=== PATIENT | female | born 1985 | race Caucasian/White ===

== ENCOUNTER 2022-08-28 15:07 | Inpatient (IN) | payer MEDICARE, OTHER ==
[~2022-08-28] VITALS: Ht 160 cm; Wt 66.7 kg
--- NOTE | 2022-08-28 15:07 | NUR ---
RECEIVED PT CAME BY [facility] C/John FROM [facility] BS AWAKE AND ALERT NO SOB
--- NOTE | 2022-08-28 15:15 | NUR ---
BLOOD DROW AT BED SIDE BY LAB TACH
[2022-08-28 15:38] LABS: BASOPHILS % (AUTO) 0.8 % (0.0-2.0); HEMATOCRIT 34 % (33-45); HEMOGLOBIN 10.4 g/dL (11.5-14.8); LYMPHOCYTES # (AUTO) 1.2 K/uL (0.8-4.8); LYMPHOCYTES % (AUTO) 23.9 % (20.0-44.0); MEAN CORPUSCULAR HGB CONC 31 g/dl (31.0-36.0); MEAN CORPUSCULAR VOLUME 79 fL (82-100); MONOCYTES # (AUTO) 0.3 K/uL (0.1-1.30); MONOCYTES % (AUTO) 5.9 % (2.0-12.0); NEUTROPHILS # (AUTO) 3.6 K/uL (1.8-8.9); NEUTROPHILS % (AUTO) 69.4 % (43.0-81.0); PLATELET COUNT (AUTO) 374 K/uL (150-450); RED BLOOD CELL COUNT(AUTO) 4.29 MIL/uL (4.0-5.2); WHITE BLOOD COUNT (AUTO) 5.2 K/uL (4.3-11.0)
--- NOTE | 2022-08-28 15:44 | NUR ---
UA SENT TO LAB
[2022-08-28 16:13] LABS: BILIRUBIN,URINE NEGATIVE (NEGATIVE); COLOR,URINE YELLOW (YELLOW); NITRITE, URINE NEGATIVE (NEGATIVE); PROTEIN,URINE NEGATIVE (NEGATIVE); UGLUCOSE 2+ mg/dL (NEGATIVE); UROBILINOGEN,URINE 0.2 EU/dL (0.2)
[2022-08-28 16:35] LABS: ALBUMIN 3.6 g/dL (3.4-5.0); BILIRUBIN,DIRECT 0.1 mg/dL (0.0-0.2); BILIRUBIN,TOTAL 0.3 mg/dL (0.2-1.0); CALCIUM, SERUM 8.9 mg/dL (8.5-10.1); CREATININE 1.1 mg/dL (0.6-1.3); POTASSIUM 4.7 mmol/L (3.5-5.1); TOTAL PROTEIN, SERUM 7.8 g/dL (6.4-8.2)
[2022-08-28 16:38] LABS: BACTERIA,URINE 4+ /HPF (None Seen); RBC,URINE 0-2 /HPF (0-2); SQUAMOUS EPITHELIAL CELL,UR Few /HPF (None Seen); WBC,URINE 21-50 /HPF (0-3)
[2022-08-28 16:39] LABS: LEUKOCYTE ESTERASE ,URINE 1+ (NEGATIVE)
[2022-08-28] MEDS ORDERED: CEFTRIAXONE 1GM BAG (ER ONLY) 1 GM/50 ML PIGGYBACK IV ONE (17:00)
[2022-08-28] MEDS ORDERED: CLOZ25TA4 PO (17:06)
[2022-08-28] MEDS ORDERED: BENZ1TAB7 PO (17:06)
[2022-08-28] MEDS ORDERED: ACET-868 PO (17:06)
[2022-08-28] MEDS ORDERED: ASCO-340 PO (17:06)
[2022-08-28] MEDS ORDERED: OMEG-167 PO (17:06)
[2022-08-28] MEDS ORDERED: TRAZ-182 PO (17:06)
[2022-08-28] MEDS ORDERED: INSU100I26 SQ (17:06)
[2022-08-28] MEDS ORDERED: MAGN400O6 PO (17:06)
[2022-08-28] MEDS ORDERED: MULT-447 PO (17:06)
[2022-08-28] MEDS ORDERED: DOCU-141 PO (17:06)
[2022-08-28] MEDS ORDERED: METF-442 PO (17:06)
[2022-08-28] MEDS ORDERED: LORA-259 PO (17:06)
[2022-08-28] MEDS ORDERED: LEVO25TA9 PO (17:06)
[2022-08-28] MEDS ORDERED: HALO50VI4 IM (17:06)
[2022-08-28] MEDS ORDERED: INSU100V11 SQ (17:06)
[2022-08-28] MEDS ORDERED: FAMO40TA7 PO (17:06)
--- NOTE | 2022-08-28 17:10 | NUR ---
COVID SWAB SENT TO LAB
[2022-08-28] MEDS ORDERED: MAG HYDROX/AL HYDROX/SIMETH 30 ML UDC PO PRN (18:00)
[2022-08-28] MEDS ORDERED: DEXTROSE 50%-WATER 50 ML DISP.SYRIN IV PRN (18:00)
[2022-08-28] MEDS ORDERED: ZOLPIDEM TARTRATE 5 MG TABLET PO PRN (18:00)
[2022-08-28] MEDS ORDERED: Z GUARD REMEDY 4 OZ OINT TP PRN (18:00)
[2022-08-28] MEDS ORDERED: ACETAMINOPHEN 325 MG TABLET PO PRN ×2 (18:00)
[2022-08-28] MEDS ORDERED: MAGNESIUM HYDROXIDE 30 ML UDC PO PRN ×2 (18:00)
[2022-08-28] MEDS ORDERED: ONDANSETRON HCL/PF 4 MG/2 ML VIAL IVP PRN (18:00)
[2022-08-28] MEDS ORDERED: CEFTRIAXONE 1GM BAG (ER ONLY) 50 ML IV ONE (19:07)
--- NOTE | 2022-08-28 19:37 | NUR ---
HAND OFF ERNESTINA LEONARD
--- NOTE | 2022-08-28 20:18 | NUR ---
PT WALKED TO RESTROOM, NEEDS MET
--- NOTE | 2022-08-28 20:41 | NUR ---
REPORT GIVEN TO AISHA BEAL FOR TAMMY
[2022-08-28 20:48] VITALS: BP 151/97
[2022-08-28] MEDS: LORAZEPAM 1 MG TABLET PO SCH (21:09)
[2022-08-28] MEDS: BLOOD SUGAR DIAGNOSTIC 1 EACH STRIP IN SCH (21:15)
[2022-08-28] MEDS: INSULIN GLARGINE, 100 UNIT/ML CARTRIDGE SQ SCH (21:17)
[2022-08-28] MEDS: CEFTRIAXONE 1 G in IV D5W 50 ML IV SCH (21:23)
--- NOTE | 2022-08-28 21:24 | NUR ---
noc rn note sched Rocephin non-admin, was already given in ER and is Q24HRS.
[2022-08-28] MEDS: TRAZODONE 50 MG TABLET PO SCH (22:00)
--- NOTE | 2022-08-28 22:00 | NUR ---
ADMISSION NOTES PATIENT CAME UP AT AROUND 2047, ACCOMPANIED BY 1 ER PERSONNEL VIA WHEELCHAIR. PATIENT IS A/OX3. PATIENT IS AMBULATORY WITH STEADY GAIT. NO S/S OF APPARENT DISTRESS ON ROOM AIR, BREATHING EVEN AND UNLABORED. C/O 5/10 PAIN ON HER STOMACH, CLAIMING THAT SHE IS . HCG TEST WAS DONE IN ER AND WAS NEGATIVE. DENIES SI NOR HI AT THIS TIME AND ACTUALLY COOPERATIVE. NEW ID BAND ON PATIENT. BELONGINGS CHECKED AND SIGNED FOR. ORIENTED IN THE UNIT AND THE USE OF CALL LIGHT. RT. HAND IV ACCESS #20G-- STARTED ON NS @90CC/HR ORDERED. PATIENT BLOOD SUGAR 476 UPON ADMISSION. NEEDS ATTENDED FOR NOW, SAFETY IN PLACE. WILL FOLLOW THROUGH DOCTOR'S ORDERS AND CONTINUE WITH PATIENT'S PLAN OF CARE.
[2022-08-28] MEDS: IV NS 0.9% 1,000 ML IV PRN (22:18)
[2022-08-29 06:19] LABS: EOSINOPHILS % (AUTO) 0.1 % (0.0-6.0); HEMATOCRIT 30 % (33-45); HEMOGLOBIN 9.7 g/dL (11.5-14.8); LYMPHOCYTES # (AUTO) 1.8 K/uL (0.8-4.8); LYMPHOCYTES % (AUTO) 38.4 % (20.0-44.0); MEAN CORPUSCULAR HGB CONC 32 g/dl (31.0-36.0); MEAN CORPUSCULAR VOLUME 78 fL (82-100); MONOCYTES # (AUTO) 0.5 K/uL (0.1-1.30); MONOCYTES % (AUTO) 10.8 % (2.0-12.0); NEUTROPHILS # (AUTO) 2.3 K/uL (1.8-8.9); NEUTROPHILS % (AUTO) 49.7 % (43.0-81.0); PLATELET COUNT (AUTO) 338 K/uL (150-450); RED BLOOD CELL COUNT(AUTO) 3.88 MIL/uL (4.0-5.2); WHITE BLOOD COUNT (AUTO) 4.6 K/uL (4.3-11.0)
[2022-08-29] MEDS: INSULIN REGULAR, HUMAN 100 UNIT/ML 3 ML VIAL SQ PRN ×2 (06:33→17:55)
[2022-08-29] MEDS: BLOOD SUGAR DIAGNOSTIC 1 EACH STRIP IN SCH ×4 (06:35→21:24)
[2022-08-29 07:05] LABS: CALCIUM, SERUM 8.3 mg/dL (8.5-10.1); CREATININE 0.9 mg/dL (0.6-1.3); PHOSPHORUS 3.1 mg/dL (2.5-4.9)
--- NOTE | 2022-08-29 07:15 | NUR ---
noc rn note Patient in bed with eyes closed, easy to arouse. no s/s of apparent distress on room air. denies pain at this time. all needs attended. all scheduled medications administered. endorsed to Deja morning shift rn for continuity of patient care.
--- NOTE | 2022-08-29 07:30 | NUR ---
MS RN OPENING NOTES RECEIVED PATIENT ON BED AWAKE AND A/O X4. ON ROOM AIR TOLERATING WELL. NO SOB NOTED. NOT IN DISTRESS. WITH NO COMPLAINTS OF PAIN OR DISCOMFORT AT THIS TIME. WITH IV ACCESS AT THE RIGHT HAND G20 WITH IVF NS AT 90ML/HR INFUSING WELL. SAFETY MEASURES IN PLACED. CALL LIGHT WITHIN REACH. BED ON LOWEST LOCKED POSITION, SIDE RAILS UP X2. WILL CONTINUE TO MONITOR.
[2022-08-29 07:58] VITALS: BP 93/63
[2022-08-29] MEDS: DOCUSATE SODIUM 100 MG CAPSULE PO SCH ×2 (08:10→17:56)
[2022-08-29] MEDS: MULTIVIT W/MINERALS 1 TAB TABLET PO SCH (08:10)
[2022-08-29] MEDS: BENZTROPINE MESYLATE (1 MG) 1 MG TABLET PO SCH ×2 (08:10→17:56)
[2022-08-29] MEDS: CLOZAPINE 25 MG TABLET PO SCH ×2 (08:10→17:56)
[2022-08-29] MEDS: LORAZEPAM 1 MG TABLET PO SCH ×2 (08:10→21:24)
[2022-08-29] MEDS: FAMOTIDINE (20 MG) 20 MG TABLET PO SCH (08:10)
[2022-08-29] MEDS: LEVOTHYROXINE SODIUM 25 MCG TABLET PO SCH (08:10)
[2022-08-29] MEDS: ASCORBIC ACID 500 MG TABLET PO SCH (08:10)
[2022-08-29] MEDS: IV NS 0.9% 1,000 ML IV PRN (08:19)
[2022-08-29] MEDS ORDERED: Medication Not On Formulary EA (Omega-3 Fatty Acids/Fish Oil (Fish Oil 1,000 Mg Softgel) PO SCH (09:00)
[2022-08-29 15:54] VITALS: BP 121/82
[2022-08-29] MEDS: CEFTRIAXONE 1 G in IV D5W 50 ML IV SCH (17:57)
--- NOTE | 2022-08-29 19:01 | NUR ---
MS RN CLOSING NOTE RECEIVED PATIENT ON BED AWAKE AND A/O X4 AT 1700 HRS. ON ROOM AIR TOLERATING WELL. NO SOB NOTED. NOT IN DISTRESS. WITH NO COMPLAINTS OF PAIN OR DISCOMFORT AT THIS TIME. IV CATHETER # 20 G PATENT AND INTACT WITH IVF NS AT 90ML/HR INFUSING WELL AT 17:00 [address] SAF[address] MEASURES IN PLACE. AT 18:30 HOURS DISCOVERED PATIENT'S IV ACCESS AT THE RIGHT HAND G20 HAD DISLODGED BY ACCIDENT. SAFETY MEASURES IN PLACE. CALL LIGHT WITHIN REACH. BED ON LOWEST LOCKED POSITION, SIDE RAILS UP X2. WILL CONTINUE TO MONITOR. ATTEMPTING TO RE-START NEW IV ACCESS. WILL ENDORSE TO PIPE LINE INSPECTOR rn IF UNABLE TO START IV CATHETER.
--- NOTE | 2022-08-29 19:30 | NUR ---
MS RN OPENING NOTE RECEIVED PT AWAKE IN BED. A/O X4 AND ABLE TO MAKE NEEDS KNOWN. PT STABLE ON ROOM AIR. NO SOB OR S/S OF RESPIRATORY DISTRESS. BREATHING EVEN AND UNLABORED. IV ACCESS RFA 22G, INTACT AND PATENT, RUNNING NS @ 90 ML/HR. SAFETY PRECAUTIONS IN PLACE. BED IN LOWEST LOCKED POSITION, HOB ELEVATED, SIDE RAILS UP X2, AND CALL LIGHT AND TABLE WITHIN REACH. ALL NEEDS MET AT THIS TIME.
[2022-08-29 20:00] VITALS: BP 101/71
[2022-08-29] MEDS: TRAZODONE 50 MG TABLET PO SCH (21:24)
[2022-08-29] MEDS: INSULIN GLARGINE, 100 UNIT/ML CARTRIDGE SQ SCH (21:31)
--- NOTE | 2022-08-29 21:51 | NUR ---
RN NOTE CURRENT BS 187. ADMINISTERED LANTUS 36 UNITS ORDERED. NOTED SLIDING SCALE IS FOR AC ONLY. CLARIFIED WITH LABOR CONTRACTOR DR SHIELDS WITH ORDER TO CONTINUE SLIDING SCALE ORDER STATED AND CLARIFY WITH ATTENDING IN THE AM IF THEY WOULD LIKE THE ORDER TO BE ACHS. CHARGE NURSE ISA JACKSON.
[2022-08-30] MEDS: IV NS 0.9% 1,000 ML IV PRN (00:23)
[2022-08-30 06:02] LABS: HEMATOCRIT 31 % (33-45); HEMOGLOBIN 9.8 g/dL (11.5-14.8); LYMPHOCYTES # (AUTO) 1.8 K/uL (0.8-4.8); LYMPHOCYTES % (AUTO) 44.3 % (20.0-44.0); MEAN CORPUSCULAR HGB CONC 32 g/dl (31.0-36.0); MEAN CORPUSCULAR VOLUME 77 fL (82-100); MONOCYTES # (AUTO) 0.4 K/uL (0.1-1.30); MONOCYTES % (AUTO) 10.5 % (2.0-12.0); NEUTROPHILS # (AUTO) 1.8 K/uL (1.8-8.9); NEUTROPHILS % (AUTO) 44.2 % (43.0-81.0); PLATELET COUNT (AUTO) 335 K/uL (150-450); RED BLOOD CELL COUNT(AUTO) 4.01 MIL/uL (4.0-5.2)
[2022-08-30 06:25] LABS: CALCIUM, SERUM 8.1 mg/dL (8.5-10.1); CREATININE 0.7 mg/dL (0.6-1.3); POTASSIUM 3.9 mmol/L (3.5-5.1)
[2022-08-30] MEDS: BLOOD SUGAR DIAGNOSTIC 1 EACH STRIP IN SCH ×4 (06:33→22:00)
--- NOTE | 2022-08-30 06:34 | NUR ---
MS RN CLOSING NOTE PT AWAKE IN BED. A/O X4 AND ABLE TO MAKE NEEDS KNOWN. PT STABLE ON ROOM AIR. NO SOB OR S/S OF RESPIRATORY DISTRESS. BREATHING EVEN AND UNLABORED. IV ACCESS LFA 22G, INTACT AND PATENT, RUNNING NS @ 90 ML/HR. ALL DUE MEDS GIVEN ORDERED. SAFETY PRECAUTIONS IN PLACE AT ALL TIMES. BED IN LOWEST LOCKED POSITION, HOB ELEVATED, SIDE RAILS UP X2, AND CALL LIGHT AND TABLE WITHIN REACH. ALL NEEDS MET AT THIS TIME AND WILL ENDORSE TO ONCOMING NURSE FOR TAMMY.
[2022-08-30 07:00] VITALS: BP 117/86
--- NOTE | 2022-08-30 07:20 | NUR ---
RN OPENING NOTE RECEIVED PATIENT IN BED AWAKE, A/O X4, VERBALLY RESPONSIVE. NO SIGNS OF ACUTE DISTRESS NOTED. ON ROOM AIR, BREATHING EVEN AND UNLABORED. DENIES ANY PAIN OR DISCOMFORT AT THIS TIME. NOTED WITH IV ACCESS ON LEFT FOREARM #22G, INTACT AND PATENT RUNNING NS @90ML/HR. SAFETY MEASURE IN PLACE. BED IN LOW AND LOCKED POSITION. SIDE RAILS UP X2, CALL LIGHT PLACED WITHIN EASY REACH. WILL CONTINUE TO MONITOR PATIENT.
[2022-08-30] MEDS: LEVOTHYROXINE SODIUM 25 MCG TABLET PO SCH (07:48)
[2022-08-30] MEDS: FAMOTIDINE (20 MG) 20 MG TABLET PO SCH (07:48)
[2022-08-30] MEDS: MULTIVIT W/MINERALS 1 TAB TABLET PO SCH (08:07)
[2022-08-30] MEDS: BENZTROPINE MESYLATE (1 MG) 1 MG TABLET PO SCH ×2 (08:07→16:20)
[2022-08-30] MEDS: CLOZAPINE 25 MG TABLET PO SCH ×2 (08:07→16:20)
[2022-08-30] MEDS: ASCORBIC ACID 500 MG TABLET PO SCH (08:07)
[2022-08-30] MEDS: LORAZEPAM 1 MG TABLET PO SCH ×2 (08:07→20:42)
[2022-08-30] MEDS: DOCUSATE SODIUM 100 MG CAPSULE PO SCH ×2 (08:07→16:20)
--- NOTE | 2022-08-30 11:20 | NUR ---
RN NOTE PATIENT NOTED THAT SHE PULLED OUT HER IV LINE. ASKED PATIENT WHY SHE DID THAT, SHE SAID THE DOCTOR TOLD HER THAT SHE CAN BE DISCHARGE TODAY AND SHE IS ALREADY GETTING READY. INFORMED PATIENT TO WAIT IN HER ROOM BECAUSE THE DOCTOR HASN'T PUT THE ORDER YET. CHECKED IV SITE, NO BLEEDING NOTED. PT REFUSED IV REINSERTION. WILL CONTINUE TO MONITOR PATIENT.
[2022-08-30] MEDS: INSULIN REGULAR, HUMAN 100 UNIT/ML 3 ML VIAL SQ PRN ×2 (11:55→16:40)
[2022-08-30] MEDS ORDERED: CEPH500C2 PO (13:04)
[2022-08-30] MEDS ORDERED: NPH.100V2 SQ (13:04)
[2022-08-30 16:00] VITALS: BP 115/83
[2022-08-30] MEDS: INSULIN NPH, HUMAN ISOPHANE 100 UNIT/ML VIAL SQ SCH (16:41)
[2022-08-30] MEDS: CEFTRIAXONE 1 G in IV D5W 50 ML IV SCH (18:38)
--- NOTE | 2022-08-30 18:50 | NUR ---
RN CLOSING NOTE PATIENT IN BED AWAKE, A/O X4, VERBALLY RESPONSIVE. NO SIGNS OF ACUTE DISTRESS NOTED. REMAINS STABLE ON ROOM AIR, BREATHING EVEN AND UNLABORED. NO C/O PAIN OR DISCOMFORT. IV ACCESS ON LEFT HAND #24G, INTACT AND PATENT RUNNING NS @90ML/HR. ALL DUE MEDS GIVEN, TAKEN WELL. PATIENT AMBULATORY WITH STEADY GAIT, WITH BATHROOM PRIVILEGES. SAFETY MEASURE IN PLACE. BED IN LOW AND LOCKED POSITION. SIDE RAILS UP X2, CALL LIGHT PLACED WITHIN EASY REACH. WILL ENDORSE TO NEXT SHIFT FOR CONTINUITY OF CARE.
--- NOTE | 2022-08-30 19:32 | NUR ---
MS RN OPENING NOTES: RECEIVED PATIENT AWAKE IN BED, BED IN LOW POSITION CALL LIGHTS WITHIN REACH, NO COMPLAIN OF PAIN AND DISCOMFORT AT THIS TIME, ON ROOM AIR SATURATING WELL, NO SOB WAS OBSERVED, PATIENT IS A/OX4, AMBULATORY ABLE TO MAKE NEEDS KNOWN, IV LINE AT LEFT HAND #24 WITH ONGOING NSS@90ML/HR INFUSING WELL, PATIENT KEPT CLEAN AND DRY ALL NEEDS MET WILL CONTINUE TO MONITOR
[2022-08-30 20:00] VITALS: BP 110/69
[2022-08-30] MEDS: TRAZODONE 50 MG TABLET PO SCH (22:07)
[2022-08-30] MEDS: INSULIN GLARGINE, 100 UNIT/ML CARTRIDGE SQ SCH (22:08)
--- NOTE | 2022-08-30 22:13 | NUR ---
RN NOTES: BLOOD SUGAR-129 NO REGULAR INSULIN GIVEN PER SLIDING SCALE
[2022-08-31] MEDS: BLOOD SUGAR DIAGNOSTIC 1 EACH STRIP IN SCH (06:38)
[2022-08-31] MEDS: INSULIN REGULAR, HUMAN 100 UNIT/ML 3 ML VIAL SQ PRN (06:38)
--- NOTE | 2022-08-31 07:04 | NUR ---
MS RN CLOSING NOTES; PATIENT SLEEP IN BED COMFORTABLY, AROUSABLE TO VERBAL STIMULI, BED IN LOW POSITION CALL LIGHTS WITHIN REACH, ON ROOM AIR SATURATING WELL, PATIENT IS A/OX3-4 AMBULATORY ABLE TO MAKE NEEDS KNOWN, IV LINE AT LEFT HAND #20 WITH ONGOING [id number] INFUSING WELL, KEPT CLEAN AND DRY ALL NEEDS MET ENDORSE TO INCOMING SHIFT.
--- NOTE | 2022-08-31 07:30 | NUR ---
RN MS NOTES PT AWAKE, ALERT AND ORIENTED, WALKING INSIDE HER ROOM, ALL DRESSED UP AND READY FOR HER DISCHARGE AT 1000, NO COMPLAINT OF PAIN, RESPIRATIONS NORMAL,VITALS STABLE, BREAKFAST SERVED, NEEDS ATTENDED.
[2022-08-31 08:00] VITALS: BP 99/71
[2022-08-31] MEDS: LORAZEPAM 1 MG TABLET PO SCH (08:18)
[2022-08-31] MEDS: FAMOTIDINE (20 MG) 20 MG TABLET PO SCH (08:18)
[2022-08-31] MEDS: BENZTROPINE MESYLATE (1 MG) 1 MG TABLET PO SCH (08:18)
[2022-08-31] MEDS: MULTIVIT W/MINERALS 1 TAB TABLET PO SCH (08:18)
[2022-08-31] MEDS: DOCUSATE SODIUM 100 MG CAPSULE PO SCH (08:18)
[2022-08-31] MEDS: CLOZAPINE 25 MG TABLET PO SCH (08:18)
[2022-08-31] MEDS: ASCORBIC ACID 500 MG TABLET PO SCH (08:18)
[2022-08-31] MEDS: LEVOTHYROXINE SODIUM 25 MCG TABLET PO SCH (08:18)
[2022-08-31] MEDS: INSULIN NPH, HUMAN ISOPHANE 100 UNIT/ML VIAL SQ SCH (09:05)
--- NOTE | 2022-08-31 10:21 | NUR ---
RN MS NOTES PT AWAKE, ALERT AND ORIENTED, SITTING IN HER CHAIR, DENIES PAIN, NOT IN DISTRESS, PT COMPLIANT WITH MEDS, DISCHARGE ORDER GIVEN BY DR. RAGSDALE, DISCHARGE AND MEDICATION INSTRUCTIONS PROVIDED TO PT, VERBALIZED UNDERSTANDING, BELONGINGS ACCOUNTED FOR, REPORT GIVEN TO AMELIA ADMITTING NURSE AT [facility], PICKED UP BY 2 AMBULANCE PERSONNEL, LEFT VIA GUERNEY IN STABLE CONDITION.
[2022-09-03] MEDS ORDERED: HALOPERIDOL DECANOATE IM 100 MG/ML AMPUL IM SCH (09:00)
== END 2022-08-31 10:15 | DRG 637 ==
LOC: ER 15:09 → MED 20:38
PROVIDERS: ADMIT Nurse Practitioner Acute Care; ATTEND Nurse Practitioner Acute Care
DX: E11.65 Type 2 diabetes mellitus with hyperglycemia (principal); G93.41 Metabolic encephalopathy; E87.1 Hypo-osmolality and hyponatremia; N39.0 Urinary tract infection, site not specified; F31.64 Bipolar disorder, current episode mixed, severe, with psychotic features; Z20.822 Contact with and (suspected) exposure to COVID-19; J44.9 Chronic obstructive pulmonary disease, unspecified; K21.9 Gastro-esophageal reflux disease without esophagitis; G47.00 Insomnia, unspecified; Z79.4 Long term (current) use of insulin; Z79.84 Long term (current) use of oral hypoglycemic drugs; Z79.899 Other long term (current) drug therapy; E03.9 Hypothyroidism, unspecified; F41.9 Anxiety disorder, unspecified; B96.89 Other specified bacterial agents as the cause of diseases classified elsewhere; R79.89 Other specified abnormal findings of blood chemistry
CPT/HCPCS: 36415; 80048-TC; 80076-TC; 81001; 82962-TC; 83690-TC; 83735-TC; 84100-TC; 84702-TC; 85025-TC; 87081-TC; 87086-TC; C9803; G0378; J0696; J1631; J1815; J7030; J7060